=== PATIENT | female | born 1990 | race Caucasian/White ===

== ENCOUNTER 2019-02-26 16:11 | Day surgery (SDC) | payer BC ==
[~2019-02-26] VITALS: Ht 167.6 cm; Wt 55.7 kg
[2019-02-26] VITALS (9 sets, daily range): BP systolic 111–136; BP diastolic 46–84; PULSE 59–78; TEMP 98.8–99.4
--- NOTE | 2019-02-26 16:40 | NUR ---
Patient up to room 327, alert and oriented x 3. Spouse at bedside. Oriented to room. Initial assessment completed. INT to right AC. Denies pain or further needs at this time. Dr. Kwok and obdulio in to see patient.
--- NOTE | 2019-02-26 17:40 | NUR ---
Patient down to OR by bed.
--- NOTE | 2019-02-26 18:05 | NUR ---
Discharge instructions provided to patient. Educated on signs and symptoms of infection. Patient educated on when to call provider. Educated on maintaining follow up appointment and activity. INT to Left AC discontinued. Catheter tip intact, tolerated procedure well. Denies pain or further needs at this time. Patient ambulated out with surgical staff.
[2019-02-26] MEDS ORDERED: MOTRIN 600600 MG/TAB PO (19:34)
[2019-02-26] MEDS ORDERED: COLACE 100100 MG/CAP PO (19:34)
[2019-02-26] MEDS ORDERED: AMOXICILLIN 8751 TAB PO (19:34)
[2019-02-26] MEDS ORDERED: PERCOCET 325 MG1 TA2 PO (19:35)
--- NOTE | 2019-02-26 20:12 | NUR ---
Pt. arrived to the floor from PACU. Pt. is A&OX3. Pt. denies pain or other needs. Vitals stable.
--- NOTE | 2019-02-26 21:50 | NUR ---
Pt. laying in bed with family at bedside. Pt. is A&OX3, assessment complete. Vitals stable. Three abd. lap sites noted with maher set. Pt. denies pain or other needs.
[2019-02-27] VITALS: BP 106/52; PULSE 81; TEMP 98.2
[2019-02-27 04:00] VITALS: BP 104/66; PULSE 50; TEMP 97.8
--- NOTE | 2019-02-27 05:45 | NUR ---
Pt. slept well through the night. Pt. remains A&OX3. INT to rt. ac patent. Pt. denies pain or other needs at this time. Call light within reach.
--- NOTE | 2019-02-27 06:45 | NUR ---
awake resting in bed visiting with her , bedside shift report received from CHARLEY Palmer
--- NOTE | 2019-02-27 07:35 | NUR ---
requesting menu and is ready to order breakfast
--- NOTE | 2019-02-27 08:30 | NUR ---
had breakfast and tolerated well, full assesment compelted, see interventions for further info
[2019-02-27 08:40] VITALS: BP 107/56; PULSE 67; TEMP 97.9
--- NOTE | 2019-02-27 10:00 | NUR ---
resting in bed visiting with without c/os
--- NOTE | 2019-02-27 10:06 | NUR ---
Initial visit; Patient thanked [employer] for looking in on her and wishing her well.
[2019-02-27 11:28] VITALS: BP 119/61; PULSE 63; TEMP 98.3
--- NOTE | 2019-02-27 11:40 | NUR ---
discharge instructions given to patient, has stepped out for something to eat, will discharge when he returns, denies needs
--- NOTE | 2019-02-27 12:00 | NUR ---
discharged ambulatory
--- NOTE | 2019-02-27 13:32 | NUR ---
SW unable to meet with patient before discharge.
== END 2019-02-27 12:00 | disposition home or self-care (01) ==
LOC: JCC 16:11 → SDCO 16:11
DX: K35.80 Unspecified acute appendicitis (principal); K21.9 Gastro-esophageal reflux disease without esophagitis; D64.9 Anemia, unspecified
CPT/HCPCS: OP; J1100; J1885; J2405; J2543; J2704; J2710; J3010; J7030; Q9967